=== PATIENT | male | born 1935 | race Caucasian/White ===

== ENCOUNTER 2016-12-11 23:25 | Inpatient (IN) | payer MEDICARE, OTHER ==
[~2016-12-11] VITALS: Ht 162.6 cm; Wt 76.8 kg
--- NOTE | ~2016-12-11 | CO ---
ADMIT: 12/11/2016 RM/LOC: 527 [facility] MR#: [id number] 2620 [facility] [address] [place] [id number] [address] [place] [address] Consultation SEX: M AGE: 81 : 1935 Corrected: 12/13/2016 0620 njv DATE OF CONSULTATION: 12/12/2016 ATTENDING PHYSICIAN: Eleuterio Baptiste CONSULTING PHYSICIAN: Rick Smith MD HISTORY OF PRESENT ILLNESS: The patient is an 81-year-old male who has had a previous colectomy for cancer in the past, I believe liver resection for metastatic liver disease. He is coming in due to issues with, I believe dehydration and acute kidney injury. He has had a little bit of nausea, has off and on issues with constipation. The patient visiting with him, denies any nausea or vomiting. He has a lot of stool in his ostomy bag and air. I reviewed his plain film which is unremarkable and normal. PAST MEDICAL HISTORY: Unchanged from Lexa Francois's note. PAST SURGICAL HISTORY: Unchanged from Lexa Francois's note. ALLERGIES: UNCHANGED FROM LEXA SWEENEYRERA'S NOTE. FAMILY HISTORY: Unchanged from Lexa Spauldingra's note. SOCIAL HISTORY: Unchanged from Lexa Sweeneyrera's note. PHYSICAL EXAMINATION: VITAL SIGNS: Afebrile. HEART: Regular. LUNGS: Clear. ABDOMEN: Soft, nondistended, and nontender. ASSESSMENT/PLAN: Patient is an 81-year-old with normal exam, normal x-rays with no clinical signs of small bowel obstruction. We will allow him to advance his diet as tolerated. Please call with any questions. Rick Smith MD/ darci JOB #: [id number] CC: Eleuterio Baptiste, Attending Physician Eleuterio Baptiste, Family Physician Corrected: 12/13/2016 0620 njv
--- NOTE | 2016-12-12 02:11 | ER ---
ADMIT: 12/11/2016 RM/LOC: 527 [facility] MR#: [id number] [address] [address] [address] [place] [address] Emergency Room Report SEX: M AGE: 81 : 1935 DATE: 12/11/2016 HISTORY OF PRESENT ILLNESS: The patient is an 81-year-old male, who was transferred from [facility] for acute kidney injury. Allegedly, the patient had a history of colon cancer, status post colectomy; liver cancer, status post partial liver resection; lung cancer, status post lobectomy; and aortic valve replacement and one vessel bypass, who came to the ER for feeling tired for the last few days and also noticing swelling in the lower extremities. The patient denied any chest pain or shortness of breath. The patient also had no abdominal pain. In [facility], the complete workup was done, and the patient was found to have creatinine of 14, with elevated BUN to 172. Potassium level was 4.5, D-dimer was 1.64, probably related to elevated creatinine. Troponin I was negative and BNP was elevated to 5089. The patient was transferred to the ER here. PHYSICAL EXAMINATION: VITAL SIGNS: In the ER, the patient had stable vitals, in no obvious pain or distress. HEAD AND NECK: Exam was noncontributory. LUNGS: Clear bilaterally. HEART: Normal heart sounds without any murmurs. ABDOMEN: Soft. EXTREMITIES: Lower extremities, there is mild pitting edema on legs and feet. The patient had normal peripheral pulses and capillary filling. GENITOURINARY: There is no swelling of the scrotum. DISPOSITION: The patient was admitted for acute kidney injury, prerenal, with possible component of renal and congestive heart failure. Ruperto Vargas MD/ darci JOB #: [id number] CC: Eleuterio Baptiste MD, Attending Physician Eleuterio Baptiste MD, Family Physician
--- NOTE | 2016-12-14 09:47 | CO ---
ADMIT: 12/11/2016 RM/LOC: 527 [facility] MR#: [id number] [address] [facility] [address] [place] [phone] [address] [place] [address] Consultation SEX: M AGE: 81 : 1935 DATE OF CONSULTATION: 12/12/2016 ATTENDING PHYSICIAN: Eleuterio Baptiste CONSULTING PHYSICIAN: Aquilino Harper MD REASON FOR CONSULTATION: Acute kidney injury. HISTORY OF PRESENT ILLNESS: Thank you, Dr. Baptiste, for taking care of this nice 81-year-old gentleman, who was transferred to us from [facility] because of acute kidney injury. He has a history of colon cancer, status post colectomy. He has also had a partial liver resection because of metastasis from his colon cancer. He has a history of lung cancer, for which he had a partial lobectomy. He has been feeling poorly for about the last 2 weeks. He has no appetite. He has also noticed some lower extremity edema. He presented to the emergency room at [facility] and was found to have a creatinine of 14. He was transferred here for any dialytic needs. He denies any history of chronic kidney disease at baseline but in reviewing his external records from his primary care doctor, it appears his creatinine has been running in the 2's over the last one year. His urinalysis has been noninflammatory. He has a history of kidney stones and as per report, his CAT scan at [facility] showed right-sided kidney stone with obstruction. He notes that he has been making some urine, although it has not been as much as previously. He denies any NSAID, bpnt-pzy-yfbxoyv medications, or herbal supplements. He denies any orthopnea or PND. Denies any diarrhea or increased ostomy output. Denies any skin rash. He denies any sleep disturbances. He has no appetite at all. REVIEW OF SYSTEMS: A complete review of systems is negative in detail except as mentioned in history of present illness above. PAST MEDICAL HISTORY: 1. Colon cancer, status post resection and colostomy. 2. Partial liver resection because of colon cancer metastasis. 3. Lung cancer, status post lobectomy. 4. Aortic valve replacement. 5. Coronary artery disease, status post CABG. 6. Hypertension. 7. Type 2 diabetes mellitus. 8. Chronic kidney disease with a baseline creatinine in the 2's. ALLERGIES: MORPHINE. SOCIAL HISTORY: He lives in [place] all by himself. Family is very supportive. He is retired. Quit smoking about 20 years ago. No ongoing tobacco, alcohol, or recreational drug use. FAMILY HISTORY: No family history of chronic kidney disease or renal ADMIT: 12/11/2016 RM/LOC: 527 [facility] MR#: [id number] [address] [address] [address] [place] [address] Consultation SEX: M AGE: 81 : 1935 replacement therapy. MEDICATIONS: Reviewed and addressed in the chart. PHYSICAL EXAMINATION: VITAL SIGNS: Temperature 98.5 Fahrenheit, pulse 73, blood pressure 151/56, saturating 96% on room air. GENERAL: He is comfortable. HEENT: Head is nontraumatic and normocephalic. Extraocular movements are intact. No conjunctival pallor. Dry mucosa. NECK: Supple without any JVD. CHEST: Clear to auscultation. CVS: Regular rhythm. S1, S2 heard. No rubs, murmurs, or gallops. ABDOMEN: Soft. Nontender. EXTREMITIES: With 1+ bilateral lower extremity edema. SKIN: No rash or nodules. NEUROLOGIC: Alert, awake, and oriented x3. He is able to move all his extremities. PSYCHIATRIC: Affect and memory within normal limits. MUSCULOSKELETAL: Major joints within normal. Range of motion within normal limits. LABORATORY DATA: Reviewed. BMP with sodium 146, potassium 5.4, CO2 of 8, creatinine 14.9. His BUN is pending. His hemoglobin is 10.2. ASSESSMENT AND PLAN: 1. Acute kidney injury on chronic kidney disease stage 3/4 - His baseline serum creatinine upon review of external records appears to be in the low to mid 2's. His acute kidney injury is likely secondary to obstruction +/- prerenal acute kidney injury. 2. Azotemia secondary to acute kidney injury above. 3. Metabolic acidosis - secondary to acute kidney injury. 4. Volume expansion/edema. My guess is that he had a decline in his kidney function and then he became ADMIT: 12/11/2016 RM/LOC: 527 [facility] MR#: [id number] [address] [address] [address] [place] [address] Consultation SEX: M AGE: 81 : 1935 uremic along with development of metabolic acidosis and volume expansion, which explains his symptoms. He has been feeling poorly as a consequence. I will start him on some gentle hydration with IV bicarbonate-containing fluids and we will await Urology evaluation to see if his kidney function will improve after relief of obstruction. I will also plan to obtain access in the meantime, in case he develops any emergent need for renal replacement therapy. No emergent indication for renal replacement therapy at this time, however. The patient as well as his family is agreeable to dialysis in case any need for that arises. Thank you for this interesting consultation. Please do not hesitate to contact me with any questions. Aquilino Harper MD/ darci JOB #: [id number] CC: Eleuterio Baptiste, Attending Physician Eleuterio Baptiste, Family Physician
--- NOTE | 2016-12-14 13:08 | CO ---
ADMIT: 12/11/2016 RM/LOC: 405 [facility] MR#: [id number] 2620 [facility] [address] [place] [phone] [address] LAZO [address] [place] [phone] Consultation SEX: M AGE: 81 : 1935 DATE OF CONSULTATION: 12/13/2016 ATTENDING PHYSICIAN: Eleuterio Baptiste CONSULTING PHYSICIAN: Melissa Alas APRN TIME IN: 1320 hours. TIME OUT: 1355 hours. REASON FOR CONSULTATION: Supportive care consultation was requested by Dr. Baptiste for discussion of goals for care. HISTORY OF PRESENT ILLNESS: Mr. Lazo is a delightful 81-year-old, male, who presented initially to [facility] with fatigue on 12/11. Lab work was done and revealed a creatinine 14 and a potassium 4.5, therefore, he was transferred to [place] for Nephrology consult. CT scan did reveal a large staghorn calculus with moderate right hydronephrosis, therefore Urology was consulted. Additionally, Surgery was consulted for potential small-bowel obstruction, however they did rule this out. It is of note that the patient does have a history of metastatic colon cancer to the lung and liver for which he has had resection. Today, he was started on hemodialysis and it appears that this will likely be more of a long-term thing for him. Due to his complexities, supportive care consultation was requested to discuss goals for care. In terms of advanced directives, the patient states that he has completed health care [id number]-[id number] paperwork as well the living will. His daughter Raysa Aranda whose phone# [phone] is the patient's healthcare power-of- securities attorney. In terms of code status, he states that he wishes to be a do not resuscitate/do not intubate status. Symptomatically, the patient denies any complaints. He does appear slightly debilitated at this time. PAST MEDICAL HISTORY: Colon cancer with colostomy and known mets to the lung and liver. He has undergone resection of this. Also, has a history of aortic valve replacement, type 2 diabetes mellitus, hypertension, and hyperlipidemia. ALLERGIES: THE PATIENT IS ALLERGIC TO MORPHINE. CURRENT MEDICATIONS: Please see the patient's MAR for specific routes and dosages. His current medications are as follows. 1. NovoLog. 2. Glutose. 3. Glucagon. 4. D5 normal saline. 5. D50. 6. Multivitamin. ADMIT: 12/11/2016 RM/LOC: 405 [facility] MR#: [id number] [facility] [address] [address] [address] LAZO [address] [place] [address] Consultation SEX: M AGE: 81 : 1935 7. Lopressor. 8. Vitamin D. 9. Zocor. 10.Aspirin. 11.Zofran. 12.Amaryl. 13.Maalox. 14.Tylenol. 15.Surfak. 16.Aplisol. SOCIAL HISTORY: The patient is . He was living home alone. His does have Alzheimer's disease and lives at an extended care facility. His children are involved in his care. He is a former smoker. He does not use alcohol. FAMILY HISTORY: Reviewed and noncontributory. FUNCTIONAL REVIEW: Prior to his hospital stay, he was living at home. He was independent in his cares. He was still driving. His palliative performance scale prior to admission was around a 70% to 80%. Currently, he is mostly in bed. He is requiring some assistance with ADLs. His intake is normal. His current palliative performance scale is around 60% to 70%. REVIEW OF SYSTEMS: A 10-point review of systems was completed and other than those pertinent positives and negatives mentioned the HPI, it is negative. PHYSICAL EXAMINATION: GENERAL: The patient is examined in the bed. He is in no acute distress. He is receiving dialysis during my assessment. VITAL SIGNS: Temperature 97.0, pulse 77, respirations 16, blood pressure 154/69, oxygen 98% on room air. HEENT: Head is normocephalic. Pupils are equal, round, and reactive with a diameter of 3 mm bilaterally. Oral mucosa pink and moist with fair dentition. NECK: Supple. RESPIRATORY: Respirations are equal and nonlabored at rest. LUNGS: Diminished in the bases bilaterally. CARDIOVASCULAR: Rate and rhythm regular without murmurs, rubs, or gallops. 1+ bilateral lower extremity edema noted. GASTROINTESTINAL: Soft, nontender. Bowel sounds are positive. He is obese. MUSCULOSKELETAL: Generalized weakness. No obvious joint deformity. INTEGUMENTARY: Skin turgor is fair. No rashes or wounds noted. NEUROLOGIC: Alert and oriented x3. He will follow commands. PSYCHIATRIC: Calm. Cooperative. No agitation or delirium noted. IMPRESSION: 1. Physical debility. 2. Fatigue. 3. Malaise. ADMIT: 12/11/2016 RM/LOC: 405 [facility] MR#: [id number] [address] [place] [phone] [facility] LAZO [address] [place] [address] Consultation SEX: M AGE: 81 : 1935 4. Acute on chronic kidney disease, for which he is now on hemodialysis. 5. History of colon cancer with lung and liver metastases, status post resection. 6. Coronary artery disease. 7. Palliative care. 8. The patient is a DNR/DNI. PLAN: 1. I was able to meet with the patient and his daughter at the bedside. We reviewed his overall status and goals for the time ahead. He does discuss his cancer history and states that things have been fairly stable for him in those aspects. He states that his resections were successful in terms of his disease burden. At this time, his goal is to continue his current level of care and get back home. He did discuss dialysis with Dr. Harper this morning and is aware that the dialysis may be on a long-term basis and he is okay with this. It is of note that he has a with Alzheimer's dementia, who is an extended care facility, who he does spend a lot of time helping with her care. He is thankful for supportive care consultation and agrees to ongoing discussions pending his status. 2. We did review code status and he states that he is to be a do not resuscitate/do not intubate status and that this has been outlined on his advanced directives. 3. In terms of advanced directives, the patient already has a living will and durable [id number] for healthcare in place. I will attempt to obtain copies of these for our chart. 4. We will continue to follow along in the care of this patient, assist with goals for care as needed. We would like to thank Dr. Baptiste for the invitation to participate in this patient's care. Total consultation time was 35 minutes from 1320 hours to 1355 hours with 20 minutes from 1325 hours to 1345 hours spent [id number] with the patient and family discussing goals for care and providing counseling and support. We will continue to follow along in the care of this delightful patient. Melissa Alas APRN/ darci JOB #: [id number] CC: Eleuterio Baptiste, Attending Physician Eleuterio Baptiste, Family Physician
--- NOTE | 2016-12-18 12:37 | HP ---
ADMIT: 12/11/2016 RM/LOC: 527 [facility] MR#: [id number] [address] [facility] [address] [place], [place] [address] [address] LAZO [address] [place] [address] History and Physical SEX: M AGE: 81 : 1935 DATE OF SERVICE: 12/12/2016 CHIEF COMPLAINT: Acute kidney injury with nausea, vomiting, dehydration, and multiple medical problems. HISTORY OF PRESENT ILLNESS: Mr. Lazo is a very nice 81-year-old, male, who presented to [facility] emergency room yesterday and was feeling "tired" for the previous few days and increasing swelling of lower extremities. He did not have any abdominal pain. However, he states he was nauseated and had vomited occasionally. At [facility], a complete workup was done, and he was found have a creatinine of 14, potassium was 4.5, troponin was negative, and he was transferred from [facility] to [facility] ER for Nephrology consultation. We were asked to see him in general medical follow up. He usually sees Dr. Breezy Ferreira-his [employer] in [place], "most of his medical care has been done through [facility]." PAST MEDICAL HISTORY: Complicated. He has a history of colon cancer and has a colostomy. The colon cancer and mets to the liver were resected. Apparently, he also has a history of lung cancer, although, it is uncertain with the lung cancer was metastatic or not-the lung cancer was also resected apparently in about December 2016. He has a history of apparent aortic valve replacement and one vessel bypass several years ago. At the time of his liver resections "60% of it was removed," and his lung cancer was on the left. He is a full code. He carries a diagnosis of type 2 diabetes and is on Amaryl. He has a history of systemic hypertension, hyperlipidemia, CURRENT MEDICATIONS: Include: 1. Amaryl 2 mg daily. 2. Aspirin 81 mg daily. 3. Lopressor 100 mg b.i.d. 4. Multivitamin one daily. 5. Vitamin D 1000 international units daily. 6. Zocor 20 mg daily. P.R.N. orders for: 1. Maalox. 2. Surfak. 3. Tylenol. ALLERGIES: THERE IS AN ALLERGY REPORTED TO MORPHINE. SOCIAL HISTORY: Reveals he is a former smoker, but quit years ago. He does not use alcohol. REVIEW OF SYSTEMS: Otherwise, basically negative x10-he has had no acute recent injury, although, "I have not been well for a longtime." He has had no unexplained fever, or chills. He denies any ominous chest pain or worsening trouble breathing. He states his bladder and bowel function have been good until the current onset of symptoms. He has noted increased swelling of his lower extremities in the last couple of days. He has had no history for ADMIT: 12/11/2016 RM/LOC: 527 [facility] MR#: [id number] [address] [address] WILLI[address] LAZO [address] [place] [address] History and Physical SEX: M AGE: 81 : 1935 neurologic or psychiatric disorder. PHYSICAL EXAMINATION: VITAL SIGNS: Since admission, he has been afebrile. Blood pressures have been in the 160 systolic range, pulse is about 70. GENERAL: He is he is alert, oriented x3. He is nauseated and vomiting with "dry heaves" at the time of this exam. NECK: Reasonably supple. LUNGS: Actually sound clear. CARDIAC: Exam shows a mildly irregularly irregular cardiac rhythm with somewhat distant sounds. I do not detect an obvious murmur, but it is a little difficult to auscultate. ABDOMEN: Protuberant, somewhat silent. EXTREMITIES: Lower extremities show a trace of edema bilaterally. IMPRESSION: 1. Acute kidney injury. 2. Apparent nausea, vomiting, dehydration, possible etiology for acute kidney injury. 3. Large staghorn calculus right with moderate hydronephrosis (by CT yesterday). 4. History of metastatic colon cancer-status post bowel and liver resection with colostomy. 5. History of apparent aortic valve replacement with one-vessel bypass. 6. History of lung cancer-status post left lung partial resection. 7. Type 2 diabetes. 8. Systemic hypertension. 9. Lipid abnormality. PLAN: He has been admitted. We will get a consult with Surgery. Dr. Harper has already been consulted. Further treatment will depend on his response to our initial therapies. We will try to control his symptoms. Eleuterio Baptiste MD/ darci JOB #: [id number] CC: Eleuterio Baptiste, Attending Physician Eleuterio Baptiste, Family Physician
[2016-12-23] MEDS ORDERED: ZOCOR20 MG PO (08:32)
[2016-12-23] MEDS ORDERED: ASA CHILDREN'S81 MG PO (08:32)
[2016-12-23] MEDS ORDERED: CENTRUM MEN'S1 EACH PO (08:33)
[2016-12-23] MEDS ORDERED: LEVAQUIN DPS750 MG PO (08:33)
[2016-12-23] MEDS ORDERED: METOPROLOL TART25 MG PO (08:33)
[2016-12-23] MEDS ORDERED: AMARYL1 MG PO (08:33)
--- NOTE | 2016-12-24 07:23 | OR ---
ADMIT: 12/11/2016 RM/LOC: 405 [facility] MR#: [id number] 2620 [facility] [address] [place] [phone] [address] [place] [address] Operative/Delivery Room Report SEX: M AGE: 81 : 1935 SURGERY DATE: 12/21/2016 SURGEON: Jerome Conti MD PREOPERATIVE DIAGNOSIS: End-stage renal disease. POSTOPERATIVE DIAGNOSIS: End-stage renal disease. PROCEDURE: Replacement of temporary non-tunneled hemodialysis catheter to a tunneled hemodialysis catheter through the initial access site. ANESTHESIA: General. ESTIMATED BLOOD LOSS: 5 mL. DESCRIPTION OF PROCEDURE: The patient was taken to the operating room and placed supine on the operating room table. General anesthesia was established. The neck and chest and prior short-term catheter were prepped and draped in the standard surgical fashion. Fluoroscopy showed appropriate position of the short-term catheter. A guidewire was advanced under fluoroscopic visualization through the distal port of this catheter. The catheter was then withdrawn. A dual lumen tunneled hemodialysis catheter was then advanced from a stab incision, inferior to the clavicle on the right chest wall. This was advanced to the wire site, and the subcutaneous cuff was in appropriate position. The dilator and sheath were advanced over the guidewire under fluoroscopy. The guidewire and dilator were withdrawn. The catheter was deployed via the sheath, and the sheath was removed. Fluoroscopy showed appropriate position of the catheter with the tip at the right atrium and no kink. Both ports aspirated easily and were flushed with heparinized saline. The catheter was secured to the skin with 3-0 nylon suture. A dressing was applied. Sponge, needle, and instrument counts were correct at the end of the case. The patient tolerated the procedure well and transferred to the recovery area in stable condition. Jerome Conti MD/ darci JOB #: [id number] CC: Eleuterio Baptiste, Attending Physician Eleuterio Baptiste, Family Physician
--- NOTE | 2016-12-24 11:51 | CO ---
ADMIT: 12/11/2016 RM/LOC: 405 [facility] MR#: [id number] 2620 [facility] [address] [place], [place] [address] WILLIAMS LAZO [address] [place] [address] Consultation SEX: M AGE: 81 : 1935 DATE OF CONSULTATION: 12/18/2016 ATTENDING PHYSICIAN: Eleuterio Baptiste CONSULTING PHYSICIAN: Eddy Fernando MD REASON FOR CONSULTATION: Abnormal protein lab. HISTORY OF PRESENT ILLNESS: Mr. Lazo is a very pleasant, 81-year-old male, who was admitted 6 days ago to our hospital due to acute kidney injury on top of chronic kidney disease. Initially, there was some concern for a large renal calculus stone, but this was proven to be present on previous CT scans and thus no intervention such as stenting or nephrostomy tube placement was pursued. Rather, the patient was initiated on hemodialysis and has received approximately four rounds since then and has improved in his initial symptoms of lower-extremity swelling, abdominal pain, nausea, and vomiting. There was also some initial concern for small bowel obstruction, but this seems to have resolved itself with correction of electrolytes and acid base status. The patient does admit to feeling still quite fatigued especially after his runs of dialysis with occasional nausea following these as well. His appetite is poor. He is not drinking much, although he is still producing urine. Plan for this hospitalization is for placement of a tunneled catheter and discharge in the next 24-48 hours. During the workup for kidney failure, a protein analysis in the form of SPEP was sent with immunofixation which returned with no monoclonal protein. Additionally, a serum-free light chain lab was sent with elevations in kappa and lambda with an abnormally high ratio of 3.03. REVIEW OF SYSTEMS: A complete review of systems was conducted and found to be negative except for what was mentioned above in HPI. PAST MEDICAL HISTORY: 1. Colon cancer, status post resection with colostomy formation. 2. Partial liver resection due to colon metastasis. 3. Lung cancer, status post lobectomy. 4. Aortic valve replacement. 5. CAD, status post CABG. 6. Hypertension. 7. Type 2 diabetes. 8. CKD with baseline creatinine in the 2s. ALLERGIES: MORPHINE. MEDICATIONS: Reviewed in the medical record. SOCIAL HISTORY: The patient does live alone in [place]. He is a typical patient of Dr. Ferreira. He has supportive family. Former smoker. Quit over 20 years ago. No current alcohol or recreational drug use. FAMILY HISTORY: No significant family history of renal failure. Otherwise, ADMIT: 12/11/2016 RM/LOC: 405 [facility] MR#: [id number] [address] [address] WILLIAMS LAZO [address] [place] [address] Consultation SEX: M AGE: 81 : 1935 no pertinent family history applies to this situation. PHYSICAL EXAMINATION: VITAL SIGNS: Temperature 99.1, pulse 106, respiratory rate 20, blood pressure 114/65, saturating 96% on room air. GENERAL: The patient is alert and oriented x3, very pleasant, and a good historian. Resting comfortably in bed. HEENT: Pupils are equal, round, and reactive to light. Mouth is free from oral lesions with dry mucous membranes. Neck shows trachea midline with no cervical lymphadenopathy. HEART: Regular rate and rhythm with no murmurs, rubs, or gallops. LUNGS: Clear to auscultation bilaterally with normal respiratory effort. ABDOMEN: Soft, nontender to palpation. Colostomy pink, moist, and functioning. Bowel sounds are positive. EXTREMITIES: Show trace bilateral lower extremity edema. No clubbing, no cyanosis. SKIN: Shows no concerning rashes or pigmented lesions. MUSCULOSKELETAL: Joints are noninflamed. Range of motion unimpaired. NEUROLOGIC: Cranial nerves II through XII are grossly intact. No focal deficits. PSYCH: Mood is euthymic. Affect is full and mood congruent. LABORATORY AND X-RAY DATA: [place] 19.1, lambda 6.31, kappa-lambda ratio 3.03. Creatinine 14.2 at the same time the proteins were sent. SPEP shows no monoclonal protein. Imaging reports reviewed. ASSESSMENT AND PLAN: An 81-year-old male with acute kidney failure on chronic renal disease, abnormal high proteins. ADMIT: 12/11/2016 RM/LOC: 405 [facility] MR#: [id number] [address] [address] WILLIAMS LAZO [address] [place], [place] [id number] Consultation SEX: M AGE: 81 : 1935 Elevated serum protein labs. The elevation in both kappa and lambda to a moderate degree creating a ratio also slightly elevated at 3.03 is a very common finding in renal failure, both acute and chronic. This modest concomitant increase is highly consistent with this and does not represent either an etiology for kidney failure nor raises the possibility of myeloma or amyloid. Would recommend no further workup. I discussed this lab and it is in's and out's with the patient giving reassurance to his apparent satisfaction. No monoclonal protein on SPEP is also reassuring. No followup planned. Thank you for this consultation. TOTAL TIME SPENT: 60 minutes. Eddy Fernando MD/ darci JOB #: [id number] CC: Eleuterio Baptiste, Attending Physician Eleuterio Baptiste, Family Physician
--- NOTE | 2016-12-25 08:07 | NUR ---
PT to dc home with [facility] upon dc. Pt and family feel comfortable with plan and are very supportive. PT family to transfer pt to follow up dysauravis appt. [facility] aware of pt dc. Info faxed via nursing.
--- NOTE | 2017-01-08 10:12 | CO ---
ADMIT: 12/11/2016 RM/LOC: 527 [facility] MR#: [id number] [address] [address] WILLIAMS COURTNEY [address] [place] [address] Consultation SEX: M AGE: 81 : 1935 DATE OF CONSULTATION: 12/12/2016 ATTENDING PHYSICIAN: Eleuterio Baptiste CONSULTING PHYSICIAN: Joselito Ivan MD REASON FOR CONSULTATION: 1. Right staghorn calculus. 2. Right-sided hydronephrosis. 3. Acute renal failure. HISTORY OF PRESENT ILLNESS: The patient is a pleasant 81-year-old, white male. He was admitted with acute renal failure. Serum creatinine is 14.9. He states for the past several weeks he has had increasing difficulty with lower extremity cramping and pain, decreased appetite, mild nausea, and just feeling cold all the time. This prompted a visit to the emergency room where acute renal failure was identified. CT scan at that time demonstrated a normal left renal unit without evidence of hydronephrosis or stone. Right staghorn calculus, mild hydronephrosis, and associated renal atrophy. It should be noted that this stone has been noted and the kidney similar in appearance in comparison to CT scans done in 2013 in 2015. The patient states that over the years he has had intermittent right-sided flank pain. It does not sound like there has been any issues of urinary tract infection or pyelonephritis. The patient denies any significant hematuria. There is no active symptoms of urinary tract infection, and urinalysis upon admission was unremarkable for significant urinary tract infection. The patient's baseline serum creatinine is 2.5. The patient otherwise denies any obstructive voiding symptoms. There is no irritative voiding symptoms. No past surgical history involving the urinary tract. The patient has no urinary incontinence. In discussing the situation with the nurses, his urine output has been relatively good today. He had voided 525 mL. He then had another void, but he missed the hat. He is feeling somewhat better with just IV fluids. MEDICATIONS: At the present time include: 1. Amaryl 2 mg tablets, 1 mg with meals. 2. Aspirin 81 mg p.o. daily. 3. Lopressor 100 mg p.o. b.i.d. 4. Multivitamin. 5. Vitamin D. 6. Zocor 20 mg p.o. daily. 7. Sliding scale insulin. ALLERGIES: MORPHINE. PAST SURGICAL HISTORY: Patient denies any previous urologic interventions. PHYSICAL EXAMINATION: GENERAL: The patient is a very pleasant, 81-year-old white male, who is in no apparent distress. ABDOMEN: Soft. Ostomy in left lower quadrant. ADMIT: 12/11/2016 RM/LOC: 527 [facility] MR#: [id number] [facility] [address] [address] WILLIAMS COURTNEY [address] [place] [address] Consultation SEX: M AGE: 81 : 1935 BACK: No costovertebral angle tenderness is appreciated. : The patient does have mild phimosis. There was no inflammation involving the preputial tissues. Testes descended bilaterally without mass or tenderness. RECTAL: Exam is not possible as the patient does not have a rectum. LABORATORY DATA: White blood cell count 11.6. Serum creatinine 14.9. Urinalysis demonstrates pH of 5, 2+ blood, 3+ white blood cells, 4+ red blood cells. ASSESSMENT AND PLAN: 1. Acute renal failure. 2. Right staghorn calculus with mild hydronephrosis and associated renal atrophy. I do not feel that the staghorn stone is likely explanation for the patient's acute renal failure. I did discuss the fact that Dr. Harper had requested stent placement. We did discuss stent placement in detail with the patient to include potential complications of anesthesia, bleeding, infection, inability to place stent in retrograde fashion which may require percutaneous nephrostomy tube. We have discussed symptoms of stent irritation include urgency, frequency, flank pain, and hematuria. I did breastfeeding peer counselor the patient that if we instrument this right collecting system which does not appear to be associated with infection at the present time, we would be obligated to either managed with a long-term stent as simple stent removal would be fraught with difficulty in terms of infection in the setting of obstruction. We also did discuss percutaneous ultrasonic lithotripsy. The procedure in detail as well as associated risks and benefits. The patient at this point is not terribly excited and does not want to consent to any type of intervention at present. He would like to see what the creatinine is in the morning and then will discuss further. As I stated above, I do not feel that the solution of the patient's renal failure is simple stent placement. However, if at the end of the day, the care team decides if that is in the patient's best interest and of course, the patient consents, we can go ahead and try to attempt stent placement if we met with any difficulty attempt of stent placement would be aborted, and then we would have to decide on whether not we wanted to place a percutaneous nephrostomy tube. I think ultimately if we do get to the point where we consider percutaneous ultrasonic lithotripsy because of instrumentation, the patient would be at very high risk for operative complication. Joselito Ivan MD/ darci JOB #: [id number] CC: Eleuterio Baptiste, Attending Physician ADMIT: 12/11/2016 RM/LOC: 527 [facility] MR#: [id number] [address] [place] [phone] WILLIAMS COURTNEY [address] [place] [id number] Consultation SEX: M AGE: 81 : 1935 [facility] Fruehling, Family Physician
--- NOTE | 2017-01-11 10:18 | CO ---
ADMIT: 12/11/2016 RM/LOC: 527 [facility] MR#: [id number] 2620 [facility] [address] [place] [address] GOLDY COURTNEY [address] [place] [address] Consultation SEX: M AGE: 81 : 1935 DATE OF CONSULTATION: 12/12/2016 ATTENDING PHYSICIAN: Eleuterio Baptiste CONSULTING PHYSICIAN: Rick Smith MD REASON FOR CONSULTATION: Possible small bowel obstruction. HISTORY OF PRESENT ILLNESS: Goldy is a very pleasant 81-year-old male, who has been admitted to the hospital for acute kidney injury. He says his symptoms recently has been lack of appetite, and lower extremity pain and swelling. He does have some mild abdominal pain, but nothing compared to the pain he has noticed in his legs. He has also been nauseous for the last few days but only has had dry heaves. Denies emesis. He is eating food currently, just does not have much of an appetite. The patient is status post colon resection for cancer that happened approximately 25 years ago. He has a colostomy because of this. This morning, he has noticed some air and some mild stool in the bag. He is unsure of his last bowel movement as he is "irregular." He further denies any emesis, hematemesis, dark or bloody stools, or diarrhea. PAST MEDICAL HISTORY: Significant for: 1. Coronary artery disease. 2. Hypertension. 3. Hyperlipidemia. PAST SURGICAL HISTORY: 1. Colon resection for colon cancer about 25 years ago. 2. Cholecystectomy. 3. Liver resection. ALLERGIES: MORPHINE. MEDICATIONS: Well documented in chart. FAMILY HISTORY: Noncontributory. SOCIAL HISTORY: The patient is a former smoker, but quit back in . He denies any alcohol or illicit drug use. REVIEW OF SYSTEMS: CONSTITUTIONAL: The patient denies any fever or night sweats, but has had some chills for the last couple weeks. The rest of a comprehensive 10-point review of systems was performed and all other systems are negative. PHYSICAL EXAMINATION: GENERAL: The patient is in no acute distress. He is alert and oriented. HEENT: Head is normocephalic and atraumatic. EOMS are intact. Conjunctivae free of icterus, erythema, or pallor. Pinnae, free of deformities. Nose, ADMIT: 12/11/2016 RM/LOC: 527 [facility] MR#: [id number] [address] [address] GOLDY COURTNEY [address] [place] [address] Consultation SEX: M AGE: 81 : 1935 midline. No tracheal deviation. NECK: Supple. SKIN: Negative for jaundice, clubbing, edema, pallor, or cyanosis. LUNGS: Normal respiratory effort. HEART: Distal pulses intact. Regular rate and rhythm. ABDOMEN: Soft, nondistended, mild tenderness in epigastric region. Ostomy present with some air in the bag. ASSESSMENT: Possible small bowel obstruction, need for possible temporary dialysis catheter. PLAN: In regards small bowel obstruction, we will watch the patient and ensure that he has continued bowel function. No surgery at this time and we will advance diet as tolerated. In regard to the temporary dialysis catheter which was recommended by Dr. Harper, we will be more than happy to place one should it be warranted. In the meantime, we will follow him closely while in the hospital. Thanks for the consultation of this patient. JHONATAN Melton / Rick Smith MD / darci JOB #: [id number] CC: Eleuterio Baptiste, Attending Physician Eleuterio Baptiste, Family Physician
--- NOTE | 2017-01-14 09:22 | DS ---
ADMIT: 12/11/2016 RM/LOC: [facility] MR#: [id number] [address] [id number] ROZ WILLIAMS Diaz [address] [place] [address] General Discharge Summary SEX: M AGE: 81 : 1935 ADMISSION DATE: 12/11/2016 DISCHARGE DATE: 12/21/2016 FINAL DIAGNOSES: 1. Acute on chronic renal injury. 2. Persistent nausea, vomiting, and dehydration possible etiology for #1. 3. Large staghorn calculus, right kidney with moderate hydronephrosis. 4. History of metastatic colon cancer status post small bowel and liver resection with colostomy. 5. History of aortic valve replacement with 1-vessel bypass. 6. History of lung cancer - status post left lung partial resection. 7. Type 2 diabetes. 8. Systemic hypertension. 9. Lipid abnormality. 10.Abnormal serum protein - probably secondary to #1. BRIEF HISTORY: This is a very nice 81-year-old male, presented to the [facility] Emergency Room the day prior to admission, was feeling "tired" for the previous few days with increasing swelling of lower extremities. He had no abdominal pain. He was not nauseated and vomited occasionally. At [facility], his complete workup was done and he was found have a creatinine of 14 and he was transferred from [facility] to the [place] for Nephrology consultation. We were asked to admit the patient in general and follow with general medical care. Dr. Breezy Ferreira is his usual lot associate in [place]. SIGNIFICANT LAB AND X-RAY: On 12/12, CBC showed a hemoglobin of 10.2 with essentially normal indices. Platelets of 139,000, white count of 11,600. Serial CBCs were followed and by 12/21, his hemoglobin was 9.6, still with normal indices, platelets of 130,000, white count of 11,700. Admitting urinalysis showed 1+ protein, 2+ occult blood, trace of leukocytes, and 4 rbc's per high-power field. On 12/12, BMP showed a sodium 146 mmol/L, potassium of 5.4 mmol/L, CO2 of 8 mmol/L, urea BUN of 178 mg/dL, creatinine of 14.9 mg/dL, calcium 7.8 mg/dL. Serial chemistries were followed and by 12/18, electrolytes were normal. Creatinine was 5.2 mg/dL. On 12/18, immunofluorescence electrophoresis was done showing no monoclonal proteins identified. On 12/18, procalcitonin was 1.03 mg/dL. By 12/21, BMP showed a creatinine of 9, BUN of 64, potassium 3.6 mmol/L and was otherwise within normal limits. On 12/19, CMP showed minimal change and essentially normal LFTs. ADMIT: 12/11/2016 RM/LOC: [facility] MR#: [id number] [address] [place] [id number] WILLIAMS COURTNEY [address] [facility] [address] [place] [address] General Discharge Summary SEX: M AGE: 81 : 1935 Serial bedside blood sugars were followed to monitor his therapy. On 12/13, C3 complement was 135 mg/dL (normal 90-180), C4 complement was 33.8 mg/dL (normal 15-40), hepatitis B surface antigen was negative and hepatitis C antibody was negative. On 12/21, protein electrophoresis was read as "normal." On 12/13, HIV 1 and 2 antibody tests were negative. On 12/13, VESTA was positive with an essentially negative panel but for an SSB autoantibody at 2.0 AI (normal less than 1.0) with a response that "SSB antibodies were associated with Sjogren's syndrome when autoantibodies associated with other autoimmune diseases, especially lupus, are absent." Blood cultures obtained x2 on admission had no growth after 5 days of incubation. On 12/13, he underwent ultrasound and fluoroscopic-guided placement of temporary right internal jugular vein dialysis catheter. On 12/12, perforation series showed a nonspecific bowel gas pattern, possible mild ileus and probable small left pleural effusion with atelectatic and inflammatory change. Serial chest x-rays were followed and by 12/20 it was read as "postoperative changes seen in the aortic valve replacement. Right [id number]-I-[id number] catheter is in place. Minimal opacity seen in the left lung base similar to compared to previous exams. Heart size is within normal limits." EKG of 12/12 showed sinus rhythm with prolonged QT interval, leftward axis, inferior infarct, age undetermined, possible anterior infarct, age undetermined, low QRS voltage in precordial leads. On 12/21, he underwent replacement of a temporary nontunneled hemodialysis catheter to a tunneled hemodialysis catheter through the initial access site by Dr. Conti. HOSPITAL COURSE: The patient was admitted through the emergency room after transfer from [facility] and was admitted with routine Med/Surg orders. He is allowed bathroom privileges with help. Dr. Harper saw him in consult. He was continued on his home medications. Code status order was a "do not resuscitate." He was placed on Lovenox 30 mg subcu daily. By 12/12, urology consult was requested about the staghorn calculus. Surgical consult was requested as we had some concerns about possible recurrent small bowel obstruction - it was not felt that was part of the issue. Low-dose Humalog was instituted with his q.i.d. Accu-Cheks. He was allowed Zofran for ADMIT: 12/11/2016 RM/LOC: [facility] MR#: [id number] [address] [facility] [address] [place], [place] [id number] WILLIAMS COURTNEY [address] [place] [id number] General Discharge Summary SEX: M AGE: 81 : 1935 nausea. He was placed on low-dose Humalog. Following Dr. Harper's evaluation, he was seen by Interventional Radiology for temporary dialysis catheter placement. He was allowed diet as tolerated. He was seen by Urology who did not feel further treatment was necessary for his renal lithiasis. He was seen by the dietitian. By 12/13 he was feeling better. His nausea was decreased, his bowel was working. His chest looked clear. Supportive Care consult was requested and they were kind enough to see him. He underwent his initial hemodialysis under the care Dr. Harper. Routine labs were followed. Following supportive Care consultation, the "DNR/DNI" status was maintained. Routine central line standing orders were followed. His Lovenox was discontinued. He was placed on heparin 5000 units subcu b.i.d. Over the next few days, he continued to slowly improve and had his dialysis. Adjustments were made in his antihypertensives. By 12/18 (hospital day 7), he was afebrile. He was facing his dialysis port placement and then the plan was to dismiss him to home. Oncology consult was requested for his abnormal proteins, but it was not felt to be a serious issue. He underwent the tunnel dialysis catheter placement as noted above. Again, over the next couple of days, he continued to be stable, his white count was slightly elevated and Interventional Radiology was little hesitant to do his placement because of that. Subsequently, he underwent the placement by Dr. Conti. Following placement of his dialysis catheter, he was allowed diet as tolerated. Subsequently it was felt safe to dismiss him to home to follow up with Dr. Harper at the [place] office and with his usual physician Dr. Ferreira. On dismissal, his medications included: 1. Simvastatin 20 mg at bedtime. 2. Vitamin D 1000 International Units daily. 3. Multivitamin 1 daily. 4. Lopressor 50 mg b.i.d. 5. Levaquin 750 mg daily. 6. P.r.n. orders for acetaminophen, stool softener, Maalox, Zofran, and glucagon. ADMIT: 12/11/2016 RM/LOC: 405 [facility] MR#: [id number] [address] [facility] [address] [place] [id number] WILLIAMS COURTNEY [address] [place] [address] General Discharge Summary SEX: M AGE: 81 : 1935 CONDITION ON DISCHARGE: Stable on the above treatment. FINAL DISPOSITION: As noted. PROGNOSIS: Guarded. He will also resume his usual aspirin 81 mg daily and glimepiride 1 mg daily. He will follow with his usual physician that being Dr. Breezy Ferreira in [place]. Eleuterio Baptiste MD/ darci JOB #: [id number] CC: Eleuterio Baptiste MD, Attending Physician Eleuterio Baptiste MD, Family Physician MD Aquilino Dubose MD
== END 2016-12-21 20:00 | disposition home health service (06) | DRG 683 ==
LOC: ER 23:25 → 5MS 23:50 → 4PCU 23:50
PROVIDERS: ADMIT Family Medicine
PROC: 05HM33Z Insertion of Infusion Device into Right Internal Jugular Vein, Percutaneous Approach (ICD-10-PCS; principal; 2016-12-13)
PROC: 5A1D60Z (ICD-10-PCS; 2016-12-13)
PROC: 02H633Z Insertion of Infusion Device into Right Atrium, Percutaneous Approach (ICD-10-PCS; 2016-12-21)
PROC: B2141ZZ Fluoroscopy of Right Heart using Low Osmolar Contrast (ICD-10-PCS; 2016-12-21)
PROC: 02PY33Z Removal of Infusion Device from Great Vessel, Percutaneous Approach (ICD-10-PCS; 2016-12-21)
DX: N17.9 Acute kidney failure, unspecified (principal); E87.2 Acidosis; I95.9 Hypotension, unspecified; E11.22 Type 2 diabetes mellitus with diabetic chronic kidney disease; I13.0 Hypertensive heart and chronic kidney disease with heart failure and stage 1 through stage 4 chronic kidney disease, or unspecified chronic kidney disease; I50.9 Heart failure, unspecified; D63.1 Anemia in chronic kidney disease; E87.6 Hypokalemia; E78.5 Hyperlipidemia, unspecified; N13.2 Hydronephrosis with renal and ureteral calculous obstruction; I25.10 Atherosclerotic heart disease of native coronary artery without angina pectoris; N18.3 Chronic kidney disease, stage 3 (moderate); Z95.2 Presence of prosthetic heart valve; Z79.82 Long term (current) use of aspirin; Z93.3 Colostomy status; Z85.118 Personal history of other malignant neoplasm of bronchus and lung; Z95.1 Presence of aortocoronary bypass graft; Z85.038 Personal history of other malignant neoplasm of large intestine; Z85.05 Personal history of malignant neoplasm of liver; Z87.891 Personal history of nicotine dependence; Z66 Do not resuscitate

== ENCOUNTER 2016-12-24 09:35 | Day surgery (SDC) | payer MEDICARE, OTHER ==
[~2016-12-24] VITALS: Ht 162.6 cm
[~2016-12-24 09:35] MED LIST: AMARYL1 MG PO; ASA CHILDREN'S81 MG PO; CENTRUM MEN'S1 EACH PO; LEVAQUIN DPS750 MG PO; METOPROLOL TART25 MG PO; ZOCOR20 MG PO
--- NOTE | 2016-12-27 09:48 | OR ---
ADMIT: 12/24/2016 RM/LOC: [facility] MR#: [id number] [address] [address] WILLIAMS COURTNEY [address] [place] [address] Operative/Delivery Room Report SEX: M AGE: 81 : 1935 SURGERY DATE: 12/24/2016 SURGEON: Jerome Conti MD PREOPERATIVE DIAGNOSIS: Dysfunctional tunneled hemodialysis catheter. POSTOPERATIVE DIAGNOSIS: Dysfunctional tunneled hemodialysis catheter. PROCEDURE: 1. Removal of tunneled hemodialysis catheter. 2. Placement of tunneled hemodialysis dual-lumen catheter in a new site in the right internal jugular vein under ultrasound and fluoroscopic guidance. ANESTHESIA: General. ESTIMATED BLOOD LOSS: 15 mL. DESCRIPTION OF PROCEDURE: The patient was taken to the operating room and placed supine on the operating room table. General anesthesia was established. The chest wall and neck around the catheter site were prepped and draped in the standard surgical fashion. Access of the venous port of the old dialysis catheter showed good aspiration of blood; however, the arterial side no blood could be aspirated. Based on this, decision was made for a new site of placement of new catheter. Fluoroscopy did not appear to have malposition of the current catheter. The right internal jugular vein was identified above the current catheter site with ultrasound. This was cannulated under ultrasound guidance with a large gauge needle. A guidewire was advanced under fluoroscopic visualization at the right atrium. The old catheter was then removed. Suture ligation of the exit site, this was performed with 3-0 nylon suture. Next, through a separate tract, lateral to ADMIT: 12/24/2016 RM/LOC: [facility] MR#: [id number] [address] [address] WILLIAMS COURTNEY Joe [address] [place] [address] Operative/Delivery Room Report SEX: M AGE: 81 : 1935 the previous tract, an #11 blade was used to make a stab incision and the catheter which was a dual-lumen tunneled catheter was advanced to the wire in the neck. Sequential dilators were placed under fluoroscopic visualization over the guidewire. The final dilator and sheath were advanced over the guidewire under fluoroscopy. The guidewire and dilator were withdrawn. The catheter was deployed via the sheath, and the sheath was removed. Fluoroscopy showed appropriate position of the catheter with the tip at the atriocaval junction and no evidence of kink. Both ports aspirated easily and were flushed with heparinized saline. The catheter was secured to the skin with 3- 0 nylon suture. Dressings were applied. Sponge, needle, and instrument counts were correct at the end of the case. The patient tolerated the procedure well and transferred to the recovery area in stable condition. Jerome Conti MD/ darci JOB #: [id number] CC: Jerome Conti, Attending Physician Breezy Ferreira, Family Physician
== END 2016-12-24 13:40 | disposition home or self-care (01) ==
LOC: SSS 09:35
DX: T82.49XA Other complication of vascular dialysis catheter, initial encounter (principal); E11.22 Type 2 diabetes mellitus with diabetic chronic kidney disease; I12.0 Hypertensive chronic kidney disease with stage 5 chronic kidney disease or end stage renal disease; N18.6 End stage renal disease; I25.10 Atherosclerotic heart disease of native coronary artery without angina pectoris; Z95.1 Presence of aortocoronary bypass graft; Z85.038 Personal history of other malignant neoplasm of large intestine; Z85.118 Personal history of other malignant neoplasm of bronchus and lung; Z98.890 Other specified postprocedural states; Z88.6 Allergy status to analgesic agent; Z99.2 Dependence on renal dialysis

== ENCOUNTER 2017-01-03 12:31 | Day surgery (SDC) | payer MEDICARE, OTHER ==
[~2017-01-03] VITALS: Ht 162.6 cm; Wt 76.6 kg
== END 2017-01-03 16:33 | disposition home or self-care (01) ==
LOC: RAD.S 12:31 → EDSTATUS 14:30 → RAD.S 16:33
PROC: 05HM33Z Insertion of Infusion Device into Right Internal Jugular Vein, Percutaneous Approach (ICD-10-PCS; principal; 2017-01-03)
PROC: 05PY33Z Removal of Infusion Device from Upper Vein, Percutaneous Approach (ICD-10-PCS; principal; 2017-01-03)
PROC: B513YZA Fluoroscopy of Right Jugular Veins using Other Contrast, Guidance (ICD-10-PCS; principal; 2017-01-03)
DX: T82.49XA Other complication of vascular dialysis catheter, initial encounter (principal); N18.6 End stage renal disease; Z88.6 Allergy status to analgesic agent; Z79.82 Long term (current) use of aspirin; Z79.899 Other long term (current) drug therapy